=== PATIENT | male | born 1995 | race Caucasian/White ===

== ENCOUNTER 2016-12-31 13:21 | Emergency (ER) | payer OTHER ==
[~2016-12-31] VITALS: Ht 182.9 cm; Wt 91.0 kg
[2016-12-31 13:26] VITALS: BP 137/88; PULSE 84; RESP 16; TEMP 98.2; O2SAT 98
--- NOTE | 2016-12-31 14:21 | RADHPO ---
EXAM DATE/TIME: 12/31/2016 14:05 [facility] COMPARISON: No previous studies available for comparison. INDICATIONS : Left dorsal foot pain radiating down second digit. Recent sprain of left foot a few months ago. MEDICAL HISTORY : None. SURGICAL HISTORY : None. ENCOUNTER: Initial ACUITY: 1 day PAIN SCORE: 7/10 LOCATION: Left distal FINDINGS: Three view examination of the left foot demonstrates no soft tissue swelling, dislocation, or fractur e. The tarsal bones appear intact. The interphalangeal and metatarsophalangeal joints are intact. The calcaneus is intact. Bony mineralization is normal. CONCLUSION: No fracture. Christopher Umanzor MD on December 31, 2016 at 14:14 Board Certified Radiologist. This report was verified electronically.
--- NOTE | 2016-12-31 14:27 | PD ---
HPI Chief Complaint: Injury Time Seen by Provider: 13:50 Travel History International Travel<30 days: No Contact w/Intl Traveler<30days: No Traveled to known affect area: No History of Present Illness HPI 21-year-old male percents emergency department for evaluation of left foot pain. Patient reports [place] twisted his foot and had immediate pain within the mid foot. He reports he previously broke a metatarsal in the same location last year. He presented for evaluation today because the pain has worsened. He denies numbness or tingling extremity. Pain with ambulation. 6 out of 10 in severity PFSH Past Medical History Medical History: Denies Significant Hx Diminished Hearing: No Influenza Vaccination: No ?: Not Past Surgical History Surgical History: No Previous Surgery Social History Alcohol Use: Yes Tobacco Use: No Allergies-Medications (Allergen,Severity, Reaction): Uncoded Allergies: CILLINS (Allergy, Severe, FULL BODY RASH, 12/31/16) Reported Meds & Prescriptions Reported Meds & Active Scripts Active No Active Prescriptions or Reported Medications Review of Systems Except as stated in HPI: all other systems reviewed are Neg Physical Exam Narrative GENERAL: Well-nourished, well-developed patient. SKIN: Focused skin assessment warm/dry. HEAD: Normocephalic. EYES: No scleral icterus. No injection or drainage. NECK: Supple, trachea midline. No JVD or lymphadenopathy. CARDIOVASCULAR: Regular rate and rhythm without murmurs, gallops, or rubs. RESPIRATORY: Breath sounds equal bilaterally. No accessory muscle use. GASTROINTESTINAL: Abdomen soft, non-tender, nondistended. MUSCULOSKELETAL: No cyanosis, or edema. Left foot: Notable tenderness over the second and third metatarsal head. Extremities neurovascular intact. No obvious deformity. BACK: Nontender without obvious deformity. No CVA tenderness. Data Data Last Documented VS Vital Signs Date Time Temp Pulse Resp B/P Pulse Ox O2 Delivery O2 Flow Rate FiO2 12/31/16 13:26 98.2 84 16 137/88 98 Orders Foot, Complete ([id number]) (12/31/16 ) [facility] Medical Decision Making Medical Screen Exam Complete: Yes Emergency Medical Condition: Yes Differential Diagnosis Metatarsal fracture, midfoot sprain, foot painother Narrative Course 21-year-old male presents emergency department for evaluation of left midfoot pain. He reports he injured the foot while [place]foot [place] the beach [place]. He has a history of previous metatarsal fracture last year. X-ray pending X-ray left foot negative for fracture Scuffs diagnostic findings with patient. He will be treated for midfoot sprain. Instructed to ice and elevate the extremity. And says as needed for pain. Follow up with her doctor Diagnosis Primary Impression: Foot sprain Qualified Code: S93.602A - Foot sprain, left, initial encounter Referrals: Primary Care Physician Additional Instructions: Keep the extremity iced and elevated. Take [id number] Motrin as needed for pain and inflammation. Follow-up with her doctor for reevaluation. Scripts No Active Prescriptions or Reported Meds Disposition: 01 DISCHARGE HOME Condition: Stable Corazon Bowie Dec 31, 2016 14:27
== END 2016-12-31 14:45 | disposition home or self-care (01) ==
LOC: PHEFT 13:21
DX: S93.602A Unspecified sprain of left foot, initial encounter (principal)
CPT/HCPCS: 73630; 99283